=== PATIENT | male | born 1960 | race American Indian/Alaskan Native ===

== ENCOUNTER 2016-08-03 04:22 | Emergency (ER) | payer BC, OTHER ==
[2016-08-03 05:23] LABS: Basophils % (Auto) 0.4 % (0.0-1.8); Eosinophils % (Auto) 1.3 % (0.0-4.3); Hematocrit 43.2 % (35.5-45.6); Hemoglobin 14.3 gm/dl (11.8-15.2); Mean Corpuscular HGB Conc 33 % (32-34); Mean Corpuscular Hemoglobin 29 pg (28-32); Mean Corpuscular Volume 87 fl (84-94); Platelet Count 242 K/mm3 (140-440); Red Blood Count 4.96 M/mm3 (3.65-5.03); White Blood Count 8.3 K/mm3 (4.5-11.0)
[2016-08-03 05:36] LABS: Anion Gap 18 mmol/L; BUN/Creatinine Ratio 16.66; Blood Urea Nitrogen 15 mg/dL (9-20); Calcium 9.5 mg/dL (8.4-10.2); Carbon Dioxide 27 mmol/L (22-30); Chloride 98.6 mmol/L (98-107); Sodium 141 mmol/L (137-145)
[2016-08-03 05:41] LABS: Glucose 33 mg/dL (75-100)
[2016-08-03] MEDS ORDERED: D50W (25GM) IV ONE (05:50)
[2016-08-03] MEDS ORDERED: K-DUR PO ONE (06:21)
--- NOTE | 2016-08-03 06:21 | Emergency Department Report ---
ED General Adult HPI - General Chief complaint: Hypoglycemia Stated complaint: LOW BLOOD SUGAR Time Seen by Provider: 08/03/16 06:17 Source: patient, EMS Mode of arrival: Stretcher Limitations: No Limitations - History of Present Illness Initial comments: EMS was summoned due to patient being lethargic. He was found to have hypoglycemia and given D50. He states that he gave himself 30 of insulin rather than is usual 20 last night unintentionally. He was transported here where he was given an oral feed. At the time of my initial evaluation the patient is asymptomatic. He states he feels back to normal. -: Gradual, hour(s) Severity scale (0 -10): 0 Treatments Prior to Arrival: other (d50) - Related Data Home Medications Medication Instructions Recorded Confirmed Last Taken Insulin Glargine [Lantus] 28 unit SUB-Q Q 09/20/14 08/03/16 08/02/16 amLODIPine/VALSARTAN 10 mg PO DAILY 08/03/16 08/03/16 08/02/16 [Amlodipine-Valsartan 10-160 mg] Allergies Allergy/AdvReac Type Severity Reaction Status Date / Time No Known Allergies Allergy Verified 08/03/16 04:29 ED Review of Systems ROS: Stated complaint: LOW BLOOD SUGAR Other details as noted in HPI Constitutional: denies: chills, fever Eyes: denies: eye pain, eye discharge, vision change ENT: denies: ear pain, throat pain Respiratory: denies: cough, shortness of breath, wheezing Cardiovascular: denies: chest pain, palpitations Endocrine: see HPI Gastrointestinal: denies: abdominal pain, nausea, diarrhea Genitourinary: denies: urgency, dysuria Musculoskeletal: denies: back pain, joint swelling, arthralgia Skin: denies: rash, lesions Neurological: denies: headache, weakness, paresthesias Psychiatric: denies: anxiety, depression Hematological/Lymphatic: denies: easy bleeding, easy bruising ED Past Medical Hx - Past Medical History Previous Medical History?: Yes Hx Hypertension: Yes Hx Diabetes: Yes Additional medical history: prostate cancer 2008 - Surgical History Past Surgical History?: No - Social History Smoking Status: Never Smoker Substance Use Type: None - Medications Home Medications: Home Medications Medication Instructions Recorded Confirmed Last Taken Type Insulin Glargine [Lantus] 28 unit SUB-Q QHS 09/20/14 08/03/16 08/02/16 History amLODIPine/VALSARTAN 10 mg PO DAILY 08/03/16 08/03/16 08/02/16 History [Amlodipine-Valsartan 10-160 mg] ED Physical Exam - General Limitations: No Limitations General appearance: alert, in no apparent distress - Head Head exam: Present: atraumatic, normocephalic - Eye Eye exam: Present: normal appearance. Absent: scleral icterus - ENT ENT exam: Present: mucous membranes moist - Neck Neck exam: Present: normal inspection - Respiratory Respiratory exam: Present: normal lung sounds bilaterally. Absent: respiratory distress - Cardiovascular Cardiovascular Exam: Present: regular rate, normal rhythm. Absent: systolic murmur, diastolic murmur, rubs, gallop - GI/Abdominal GI/Abdominal exam: Present: soft, normal bowel sounds. Absent: distended, tenderness, guarding, rebound - Rectal Rectal exam: Present: deferred - Extremities Exam Extremities exam: Present: normal inspection - Back Exam Back exam: Present: normal inspection - Neurological Exam Neurological exam: Present: alert, oriented X3, CN II-XII intact. Absent: motor sensory deficit - Psychiatric Psychiatric exam: Present: normal affect, normal mood - Skin Skin exam: Present: warm, dry, intact, normal color. Absent: rash ED Course Vital Signs 08/03/16 08/03/16 08/03/16 04:42 04:50 04:57 Temperature 97.7 F Pulse Rate 81 83 Respiratory 19 18 Rate Blood Pressure 142/80 Blood Pressure 142/80 [Left] O2 Sat by Pulse 97 98 97 Oximetry 08/03/16 08/03/16 08/03/16 05:00 05:10 05:20 Temperature Pulse Rate 82 80 75 Respiratory 16 16 14 Rate Blood Pressure 136/73 136/73 136/73 Blood Pressure [Left] O2 Sat by Pulse 95 96 96 Oximetry 08/03/16 08/03/16 08/03/16 05:30 05:40 05:50 Temperature Pulse Rate 76 Respiratory 23 16 13 Rate Blood Pressure 136/73 136/73 136/73 Blood Pressure [Left] O2 Sat by Pulse 97 97 97 Oximetry 08/03/16 08/03/16 08/03/16 06:00 06:10 06:20 Temperature Pulse Rate Respiratory 19 16 17 Rate Blood Pressure 140/80 140/80 140/80 Blood Pressure [Left] O2 Sat by Pulse 98 99 98 Oximetry 08/03/16 08/03/16 08/03/16 06:30 06:39 06:40 Temperature Pulse Rate 82 Respiratory 17 18 16 Rate Blood Pressure 140/80 140/80 Blood Pressure 144/80 [Left] O2 Sat by Pulse 98 98 99 Oximetry 08/03/16 08/03/16 08/03/16 06:50 07:00 07:10 Temperature Pulse Rate Respiratory 14 17 14 Rate Blood Pressure 140/80 140/80 147/83 Blood Pressure [Left] O2 Sat by Pulse 99 97 99 Oximetry 08/03/16 07:20 Temperature 97.7 F Pulse Rate 71 Respiratory 16 Rate Blood Pressure Blood Pressure 147/81 [Left] O2 Sat by Pulse 100 Oximetry - Reevaluation(s) Reevaluation #1: The patient was observed. He remained asymptomatic. He was road tested by the nurse and ready for discharge after my reevaluation. 08/03/16 09:13 ED Medical Decision Making - Lab Data Result diagrams: 08/03/16 04:57 08/03/16 04:57 Laboratory Results - last 24 hr 08/03/16 08/03/16 08/03/16 04:57 04:57 04:59 WBC 8.3 RBC 4.96 Hgb 14.3 Hct 43.2 MCV 87 MCH 29 MCHC 33 RDW 14.0 Plt Count 242 Lymph % (Auto) 12.1 L [place] % (Auto) 8.7 H Eos % (Auto) 1.3 Baso % (Auto) 0.4 Lymph # 1.0 L [place] # 0.7 Eos # 0.1 Baso # 0.0 Seg Neutrophils % 77.5 H Seg Neutrophils # 6.4 Sodium 141 Potassium 3.0 L Chloride 98.6 Carbon Dioxide 27 Anion Gap 18 BUN 15 Creatinine 0.9 Estimated GFR > 60 BUN/Creatinine Ratio 16.66 Glucose 33 L* POC Glucose 42 L Calcium 9.5 08/03/16 05:42 WBC RBC Hgb Hct MCV MCH MCHC RDW Plt Count Lymph % (Auto) [place] % (Auto) Eos % (Auto) Baso % (Auto) Lymph # [place] # Eos # Baso # Seg Neutrophils % Seg Neutrophils # Sodium Potassium Chloride Carbon Dioxide Anion Gap BUN Creatinine Estimated GFR BUN/Creatinine Ratio Glucose POC Glucose 76 Calcium Critical care attestation.: If time is entered above; I have spent that time in minutes in the direct care of this critically ill patient, excluding procedure time. ED Disposition Clinical Impression: Hypoglycemia due to insulin, Insulin dependent diabetes mellitus Disposition: DISCHARGED TO HOME OR SELFCARE Is pt being admited?: No Does the pt Need Aspirin: No Condition: Stable Instructions: Diabetes Mellitus Type 2 in Adults (ED), Diabetic Hypoglycemia ( ED) Additional Instructions: Check her sugars frequently. Appropriate insulin dosing. Coordinate with your primary care provider. Return any further problem. Make sure you eat amply today. Referrals: PRIMARY CARE, [Primary Care Provider] - 2-3 Days Time of Disposition: 09:15
--- NOTE | 2016-08-03 06:44 | Admit Criteria Form ---
Admission Criteria Documentation: DIABETES, HYPOGLYCEMIA Clinical Indications for Admission to Inpatient Care (Place 'X' for any and all applicable criteria): Admission is indicated for ALL of the following (1)(2)(3)(4)(5): [X ]I. Suspected or documented hypoglycemia (plasma glucose less than 50 mg/ dL (2.78 mmol/L)) with severe clinical manifestations or issues as indicated by ANY ONE of the following: [ ]a) Altered mental status (eg, coma, confusion) [ ]b) Seizure [ ]c) Ataxia [ ]d) Dysphasia [ ]e) Focal neurologic deficit(6) [ ]f) Severe weakness or fatigue [ ]g) Significant clinical signs or symptoms that do not resolve with treatment [ X]h) Hypoglycemia induced by ANY ONE of the following(7)(8)(9): [ ]i) Sulfonylurea(10) [X ]ii) Long-acting insulin (eg, half-life more than 6 hours ) (11) [ X]II. Management at other levels of care (See General Criteria: Observation Care) is not feasible because of ANY ONE of the following: [ X]a) Condition was not adequately corrected with treatment at other levels of care. [ ]b) Treatment at other levels of care is not appropriate because of condition severity (eg, coma). Extended stay beyond goal length of stay may be needed for(3)(12)(19): [ ]a) Long acting sulfonylurea-inducing hypoglycemia (10) [ ]b) Presentation in coma [ ]c) Identified etiology of hypoglycemia requires ongoing care (eg, infection ) [ ]d) Neurologic deficit [ ]e) Active serious comorbidities (eg, renal failure, heart failure) The original [employer] content created by [employer] has been revised. The portions of the content which have been revised are identified through the use of italic text or in bold, and [email or web address] has neither reviewed nor approved the modified material.All other unmodified content is copyright [employer]. Please see references footnoted in the original [employer] edition 2016
[2016-08-03 07:28] LABS: Bilirubin,Urine NEG (Negative); Blood,Urine NEG (Negative); Ketones,Urine NEG (Negative); Leukocyte Esterase,Urine NEG (Negative); Mucus,Urine FEW /HPF; Nitrite,Urine NEG (Negative); Protein,Urine <15 mg/dL mg/dL (Negative); RBC,Urine < 1.0 /HPF (0.0-6.0); Urobilinogen,Urine < 2.0 mg/dL (<2.0); WBC,Urine < 1.0 /HPF (0.0-6.0)
[2016-08-03 09:07] VITALS: BP 145/94
== END 2016-08-03 09:30 | disposition home or self-care (01) ==
LOC: ED 04:22
DX: E11.649 Type 2 diabetes mellitus with hypoglycemia without coma (principal); I10 Essential (primary) hypertension; Z79.4 Long term (current) use of insulin
CPT/HCPCS: 36415; 80048; 81001; 82962; 85025; 96374

== ENCOUNTER 2018-11-15 06:04 | Emergency (ER) | payer BC, OTHER ==
[2018-11-15 06:32] LABS: Bacteria,Urine 1+ /HPF (Negative); Bilirubin,Urine NEG (Negative); Blood,Urine SM (Negative); Color,Urine Colorless (Yellow); Protein,Urine <15 mg/dL mg/dL (Negative); Urobilinogen,Urine < 2.0 mg/dL (<2.0)
--- NOTE | 2018-11-15 07:04 | Emergency Department Report ---
ED Male HPI - General Chief complaint: Urogenital-Male Stated complaint: URINARY RETENTION Time Seen by Provider: 11/15/18 06:50 Source: patient Mode of arrival: Ambulatory Limitations: No Limitations - History of Present Illness Initial comments: Patient is a 57-year-old with complaints of urinary retention. Patient states he had a prostate surgery last week and on Tuesday he had his cath removed. Patient states he was able to urinate but as of today the patient is only able to urinate small amounts. Patient is complaining of abdominal pressure. Patient states abdominal pressure suprapubic and is a 10 out of 10. Patient states the pain is better with rest and better with urinating. Patient states she is going frequently but only urinating small amounts. Patient denies clots in his urine. Patient states she's had some red tinged to his urine. MD Complaint: other (urinary retention) -: Sudden Location: abdomen Radiation: none Severity: moderate Severity scale (0 -10): 10 Quality: aching Consistency: constant Improves with: urination Worsens with: movement recent surgery urinary retention. denies: discharge, swelling, mass, rash, blood in urine, dysuria, fever, nausea/vomiting, incontinence - Related Data Home Medications Medication Instructions Recorded Confirmed Last Taken Insulin Glargine [Lantus] 28 unit SUB-Q QHS 09/20/14 08/03/16 08/02/16 Amlodipine Besylate/Valsartan 10 mg PO DAILY 08/03/16 08/03/16 08/02/16 [Amlodipine-Valsartan 10-160 mg] Allergies Allergy/AdvReac Type Severity Reaction Status Date / Time No Known Allergies Allergy Verified 08/03/16 04:29 ED Review of Systems ROS: Stated complaint: URINARY RETENTION Other details as noted in HPI Constitutional: denies: chills, fever Eyes: denies: eye pain, eye discharge, vision change ENT: denies: ear pain, throat pain Respiratory: denies: cough, shortness of breath, wheezing Cardiovascular: denies: chest pain, palpitations Endocrine: no symptoms reported Gastrointestinal: abdominal pain. denies: nausea, diarrhea Genitourinary: denies: urgency, dysuria Musculoskeletal: denies: back pain, joint swelling, arthralgia Skin: denies: rash, lesions Neurological: denies: headache, weakness, paresthesias Psychiatric: denies: anxiety, depression Hematological/Lymphatic: denies: easy bleeding, easy bruising ED Past Medical Hx - Past Medical History Previous Medical History?: Yes Hx Hypertension: Yes Hx Diabetes: Yes Hx of Cancer: Yes (prostate) Additional medical history: prostate cancer 2008 - Surgical History Past Surgical History?: Yes Additional Surgical History: prostrate - Family History Family history: no significant - Social History Smoking Status: Never Smoker Substance Use Type: None - Medications Home Medications: Home Medications Medication Instructions Recorded Confirmed Last Taken Type Insulin Glargine [Lantus] 28 unit SUB-Q QHS 09/20/14 08/03/16 08/02/16 History Amlodipine Besylate/Valsartan 10 mg PO DAILY 08/03/16 08/03/16 08/02/16 History [Amlodipine-Valsartan 10-160 mg] ED Physical Exam - General Limitations: No Limitations General appearance: alert, in no apparent distress - Head Head exam: Present: atraumatic, normocephalic - Eye Eye exam: Present: normal appearance - ENT ENT exam: Present: mucous membranes moist - Neck Neck exam: Present: normal inspection - Respiratory Respiratory exam: Present: normal lung sounds bilaterally. Absent: respiratory distress - Cardiovascular Cardiovascular Exam: Present: regular rate, normal rhythm. Absent: systolic murmur, diastolic murmur, rubs, gallop - GI/Abdominal GI/Abdominal exam: Present: soft, tenderness (suprapubic tenderness), normal bowel sounds - Rectal Rectal exam: Present: deferred - Extremities Exam Extremities exam: Present: normal inspection - Back Exam Back exam: Present: normal inspection - Neurological Exam Neurological exam: Present: alert, oriented X3 - Psychiatric Psychiatric exam: Present: normal affect, normal mood - Skin Skin exam: Present: warm, dry, intact, normal color. Absent: rash ED Course Vital Signs 11/15/18 11/15/18 06:07 06:55 Temperature 97.8 F 97.9 F Pulse Rate 72 64 Respiratory 18 16 Rate Blood Pressure 210/113 Blood Pressure 148/79 [Left] O2 Sat by Pulse 99 100 Oximetry - Reevaluation(s) Reevaluation #1: Initial evaluation done. Patient's Todd placed. See procedure note. Patient's current blood pressure is 148/70. 11/15/18 06:50 Reevaluation #2: He states his abdominal pain has resolved. Patient states she's not having any pain. Patient states he is feeling much better 11/15/18 07:04 Reevaluation #3: I discussed all results with patient. Patient is stable for discharge. Patient will be discharged home. Patient agrees with plan of care. Patient given discharge instructions. Patient voiced understanding discharge instructions. 11/15/18 07:09 - Catheter Insertion (Urinary) Indications: to alleviate urinary retention Prophylactic Antibiotics Given: No Bladder Scan/US before Catherization: No Preparation: Providone-Iodine Type of Catheter Inserted: Todd Catheter [place] Size: 16 Catheter Balloon Size (mls): 10 Topical Anesthesia Used: No Results: successfully catherized-immediate flow Patient Tolerated Procedure: well, no complications Complications: none ED Medical Decision Making - Medical Decision Making Patient is a 57-year-old male that presents emergency room with complaints of not being able to urinate. Patient also complained of abdominal pressure. Patient found to have urinary retention. Patient had a Todd placed and had an immediate relief. Blood pressure significantly high in triage however on recheck after Todd was placed the patient's blood pressure was much better. Patient at 1300 mils removed. Patient's urine essentially unremarkable except for glucose in his urine and patient advised to follow-up with diabetic doctor for management of his diabetes. Patient advised to follow up with urology and his primary care. Patient given discharge instructions. Patient stable for discharge. - Differential Diagnosis RIGO. Urinary retention. Critical care attestation.: If time is entered above; I have spent that time in minutes in the direct care of this critically ill patient, excluding procedure time. ED Disposition Clinical Impression: Urinary retention Abdominal pain Qualifiers: Abdominal location: lower abdomen, unspecified Qualified Code(s): R10.30 - Lower abdominal pain, unspecified Hypertension Qualifiers: Hypertension type: essential hypertension Qualified Code(s): I10 - Essential (primary) hypertension Disposition: - TO HOME OR SELFCARE Is pt being admited?: No Does the pt Need Aspirin: No Condition: Stable Instructions: Urinary Retention in Men (ED), Heart Healthy Diet (ED), Todd Catheter Placement and Care (ED), Chronic Hypertension (ED), DASH Eating Plan ( ED), Low Sodium Diet (ED), Hypertension (ED), Urinary Leg Bag (GEN) Additional Instructions: Patient to follow up with primary care in 2-3 days. Patient to follow up with urologist within 24 hours. Patient to return to ER if condition worsens. Patient to take meds as directed. Patient increase water. Patient to take Tylenol or ibuprofen when necessary for pain. Patient to leave Todd in until removed by urologist. Referrals: PRIMARY CARE, [Primary Care Provider] - 2-3 Days Time of Disposition: 07:09
[2018-11-15 07:16] VITALS: BP 148/79
== END 2018-11-15 07:35 | disposition home or self-care (01) ==
LOC: ED 06:04
DX: R33.9 Retention of urine, unspecified (principal); R10.30 Lower abdominal pain, unspecified; I10 Essential (primary) hypertension; E11.9 Type 2 diabetes mellitus without complications; Z85.46 Personal history of malignant neoplasm of prostate; Z79.899 Other long term (current) drug therapy
CPT/HCPCS: 51702; 81001

== ENCOUNTER 2018-11-19 22:00 | Emergency (ER) | payer OTHER ==
[2018-11-20 00:19] LABS: Basophils # (Auto) 0.1 K/mm3 (0.0-0.1); Basophils % (Auto) 0.6 % (0.0-1.8); Hematocrit 47.2 % (35.5-45.6); Hemoglobin 15.9 gm/dl (11.8-15.2); Lymphocytes # (Auto) 0.6 K/mm3 (1.2-5.4); Lymphocytes % (Auto) 4.1 % (13.4-35.0); Mean Corpuscular HGB Conc 34 % (32-34); Mean Corpuscular Volume 87 fl (84-94); Monocytes # (Auto) 0.8 K/mm3 (0.0-0.8); Platelet Count 277 K/mm3 (140-440); Red Blood Count 5.44 M/mm3 (3.65-5.03); Red Cell Distribution Width 13.7 % (13.2-15.2)
[2018-11-20 00:29] LABS: INR 1.09 (0.87-1.13)
[2018-11-20 00:41] LABS: Alanine Aminotransferase 16 units/L (7-56); Albumin 3.8 g/dL (3.9-5); BUN/Creatinine Ratio 16; Blood Urea Nitrogen 14 mg/dL (9-20); Calcium 9.3 mg/dL (8.4-10.2); Hemolysis Index 41
[2018-11-20] MEDS ORDERED: NACL 0.9% 1000 ML 1,000 ML IV ONE (00:43)
[2018-11-20] MEDS ORDERED: TORADOL IV PRN (00:43)
[2018-11-20] MEDS ORDERED: ZOFRAN IV STA (00:43)
--- NOTE | 2018-11-20 00:50 | Emergency Department Report ---
ED General Adult HPI - General Chief complaint: Abdominal Pain Stated complaint: EMESIS/FEVER Time Seen by Provider: 11/20/18 00:39 Source: patient, family Mode of arrival: Wheelchair Limitations: No Limitations - History of Present Illness Initial comments: A 57 year old -Citizen Of The [place] male with past medical history of hypertension and diabetes. 1 week in a few days status post prostate surgical procedure, which resulted in urinary retention for which he was seen at this emergency department 2 days ago. That visit resulted in a Todd catheter implantation which she has been utilizing as directed. He presents today complaining of severe suprapubic pain, nausea and vomiting with occasional streaks of blood and there which started on yesterday. Symptoms has continued to progressively worsening since since the onset, associated with general weakness. States that the blood was dark in color. Pain is sharp in nature. Denies any known history of any acid reflux or peptic ulcer disease. Reports no trauma, foreign travel and the only new medication was the ciprofloxacin which was started 2 days ago when the Todd was placed. Radiation: non-radiation Quality: dull Consistency: constant Improves with: none Worsens with: none Associated Symptoms: fever/chills, malaise, nausea/vomiting. denies: confusion, chest pain, diaphoresis, loss of appetite, seizure, shortness of breath, syncope Treatments Prior to Arrival: none - Related Data Home Medications Medication Instructions Recorded Confirmed Last Taken Insulin Glargine [Lantus] 28 unit SUB-Q QHS 09/20/14 08/03/16 08/02/16 Amlodipine Besylate/Valsartan 10 mg PO DAILY 08/03/16 08/03/16 08/02/16 [Amlodipine-Valsartan 10-160 mg] Previous Rx's Medication Instructions Recorded Last Taken Type Ondansetron [Zofran ODT TAB] 8 mg PO Q12HR #30 tab.rapdis 11/20/18 Unknown Rx Phenazopyridine [Pyridium] 200 mg PO TID #9 tab 11/20/18 Unknown Rx levoFLOXacin [Levaquin TAB] 500 mg PO QDAY #7 tablet 11/20/18 Unknown Rx Allergies Allergy/AdvReac Type Severity Reaction Status Date / Time No Known Allergies Allergy Verified 08/03/16 04:29 ED Review of Systems ROS: Stated complaint: EMESIS/FEVER Other details as noted in HPI Comment: All other systems reviewed and negative ED Past Medical Hx - Past Medical History Hx Hypertension: Yes Hx Diabetes: Yes Additional medical history: prostate cancer 2008 - Surgical History Additional Surgical History: prostrate - Social History Smoking Status: Never Smoker Substance Use Type: None - Medications Home Medications: Home Medications Medication Instructions Recorded Confirmed Last Taken Type Insulin Glargine [Lantus] 28 unit SUB-Q QHS 09/20/14 08/03/16 08/02/16 History Amlodipine Besylate/Valsartan 10 mg PO DAILY 08/03/16 08/03/16 08/02/16 History [Amlodipine-Valsartan 10-160 mg] Ondansetron [Zofran ODT TAB] 8 mg PO Q12HR #30 tab.rapdis 11/20/18 Unknown Rx Phenazopyridine [Pyridium] 200 mg PO TID #9 tab 11/20/18 Unknown Rx levoFLOXacin [Levaquin TAB] 500 mg PO QDAY #7 tablet 11/20/18 Unknown Rx ED Physical Exam - General Limitations: No Limitations General appearance: alert, in no apparent distress - Head Head exam: Present: atraumatic, normocephalic - Eye Eye exam: Present: normal appearance - ENT ENT exam: Present: mucous membranes moist - Neck Neck exam: Present: normal inspection - Respiratory Respiratory exam: Present: normal lung sounds bilaterally. Absent: respiratory distress - Cardiovascular Cardiovascular Exam: Present: regular rate, normal rhythm. Absent: systolic murmur, diastolic murmur, rubs, gallop - GI/Abdominal GI/Abdominal exam: Present: soft, tenderness (significant tenderness to the left and right lower quadrant.), normal bowel sounds. Absent: mass, pulsatile mass - Rectal Rectal exam: Present: deferred - Extremities Exam Extremities exam: Present: normal inspection, full ROM - Back Exam Back exam: Present: normal inspection, full ROM. Absent: CVA tenderness (R), CVA tenderness (L) - Neurological Exam Neurological exam: Present: alert, oriented X3, CN II-XII intact, normal gait. Absent: motor sensory deficit - Psychiatric Psychiatric exam: Present: normal affect, normal mood. Absent: manic - Skin Skin exam: Present: warm, dry, intact, normal color. Absent: rash ED Course Vital Signs 11/20/18 11/20/18 01:10 01:40 Respiratory 16 16 Rate - Reevaluation(s) Reevaluation #1: 11/20/18 04:00 Patient reports she has no nausea and no pain at this present time feels much improved. His sugar has responded to the emergency room as well and nausea responded to his Zofran. Case was discussed with Dr. Perez, who is aware of the findings of the CT scan and patient's current condition. He is awake, alert and oriented and ready for discharge ED Medical Decision Making - Lab Data Result diagrams: 11/19/18 23:49 11/19/18 23:49 - Radiology Data Radiology results: report reviewed T ABDOMEN AND PELVIS WITHOUT CONTRAST INDICATION: lower abdominal pain. TECHNIQUE: Axial CT images were obtained through the abdomen and pelvis without IV contrast. All CT scans at this location are performed using CT dose reduction for ALARA by means of automated exposure control. COMPARISON: CT abdomen pelvis 09/20/2014 FINDINGS: LOWER CHEST: No significant abnormality. LIVER: Decreased attenuation within liver characteristic for mild steatosis. GALLBLADDER: No significant abnormality. BILE DUCTS: No significant abnormality. PANCREAS: No significant abnormality. SPLEEN: No significant abnormality. ADRENALS: No significant abnormality. RIGHT KIDNEY and URETER: No significant abnormality. LEFT KIDNEY and URETER: No significant abnormality. STOMACH and SMALL BOWEL: No significant abnormality. COLON: No significant abnormality. APPENDIX: Not visualized. No acute inflammatory process PERITONEUM: No free fluid. No free air. No fluid collection. LYMPH NODES: No significant adenopathy. AORTA and ARTERIES: No significant abnormality. IVC and VEINS: No significant abnormality. URINARY BLADDER: Moderately thickened bladder wall with perivesicular stranding changes characteristic for cystitis. Bladder is collapsed with Todd catheter. REPRODUCTIVE ORGANS: Enlarged prostate measuring 5.1 cm ADDITIONAL FINDINGS: Intramuscular fat-containing lesion right iliopsoas muscle measuring 5.8 x 6.6 x 14.0 cm in AP by transverse by craniocaudal dimensions containing thin internal septations, previously measuring 5.5 x 6.7 x 13.7 cm SKELETAL SYSTEM: Moderately advanced discogenic degenerative disease L4-5. Moderate facet degenerative disease of lumbar spine IMPRESSION: 1. Thick-walled bladder suggestive for cystitis containing Todd catheter. 2. No urinary tract calculi or hydronephrosis. 3. 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 Signer Name: Tono Willett MD Signed: 11/20/2018 1:32 AM Workstation Name: [id number] - Medical Decision Making 57-year-old -Citizen Of [place] male presents emergency department complaining of nausea, vomiting, abdominal pain with suprapubic discomfort and a Todd cath that was placed 2 days ago. Laboratory data did not support any sepsis or systemic inflammatory response syndrome. He did have a thickened gallbladder on CT scan was suggested some cystitis, which may be of an interstitial calls dizziness as well as infectious. Patient is on ciprofloxacin for place him on Levaquin as it has an increased potency and coverage. Also will give him some medication for the discomfort and an nausea. He does have a be a urologist with [facility], which she will will follow-up for further evaluation and treatment recommendations does have an appointment scheduled for this Tuesday. On November 21. Critical care attestation.: If time is entered above; I have spent that time in minutes in the direct care of this critically ill patient, excluding procedure time. ED Disposition Clinical Impression: UTI (urinary tract infection), Vomiting Disposition: - TO HOME OR SELFCARE Is pt being admited?: No Does the pt Need Aspirin: No Condition: Good Instructions: Urinary Tract Infection in Men (ED), Todd Catheter Placement and Care (ED), Acute Nausea and Vomiting (ED), Dysuria (ED) Prescriptions: levoFLOXacin [Levaquin TAB] 500 mg PO QDAY #7 tablet Phenazopyridine [Pyridium] 200 mg PO TID #9 tab Ondansetron [Zofran ODT TAB] 8 mg PO Q12HR #30 tab.royer Referrals: MICHI DOUGLAS, [Primary Care Provider] - 3-5 Days KELLIE MENDOZA MD [Staff Physician] - 3-5 Days
[2018-11-20] MEDS ORDERED: HumuLIN R IV ONE (00:56)
--- NOTE | 2018-11-20 01:06 | XRay Report ---
CHEST 2 VIEWS INDICATION / CLINICAL INFORMATION: fever and sob. COMPARISON: None FINDINGS: SUPPORT DEVICES: None. HEART / MEDIASTINUM: No significant abnormality. LUNGS / PLEURA: No significant pulmonary or pleural abnormality. No pneumothorax. ADDITIONAL FINDINGS: No significant additional findings. IMPRESSION: 1. No acute findings. Signer Name: Tono Willett MD Signed: 11/20/2018 1:01 AM Workstation Name: [id number]
--- NOTE | 2018-11-20 01:37 | Cat Scan Report ---
CT ABDOMEN AND PELVIS WITHOUT CONTRAST INDICATION: lower abdominal pain. TECHNIQUE: Axial CT images were obtained through the abdomen and pelvis without IV contrast. All CT scans at [facility] location are performed using CT dose reduction for ALARA by means of automated exposure control. COMPARISON: CT abdomen pelvis 09/20/2014 FINDINGS: LOWER CHEST: No significant abnormality. LIVER: Decreased attenuation within liver characteristic for mild steatosis. GALLBLADDER: No significant abnormality. BILE DUCTS: No significant abnormality. PANCREAS: No significant abnormality. SPLEEN: No significant abnormality. ADRENALS: No significant abnormality. RIGHT KIDNEY and URETER: No significant abnormality. LEFT KIDNEY and URETER: No significant abnormality. STOMACH and SMALL BOWEL: No significant abnormality. COLON: No significant abnormality. APPENDIX: Not visualized. No acute inflammatory process PERITONEUM: No free fluid. No free air. No fluid collection. LYMPH NODES: No significant adenopathy. AORTA and ARTERIES: No significant abnormality. IVC and VEINS: No significant abnormality. URINARY BLADDER: Moderately thickened bladder wall with perivesicular stranding changes characteristi c for cystitis. Bladder is collapsed with Todd catheter. REPRODUCTIVE ORGANS: Enlarged prostate measuring 5.1 cm ADDITIONAL FINDINGS: Intramuscular fat-containing lesion right iliopsoas muscle measuring 5.8 x 6.6 x 14.0 cm in AP by transverse by craniocaudal dimensions containing thin internal septations, previous ly measuring 5.5 x 6.7 x 13.7 cm SKELETAL SYSTEM: Moderately advanced discogenic degenerative disease L4-5. Moderate facet degenerativ e disease of lumbar spine IMPRESSION: 1. Thick-walled bladder suggestive for cystitis containing Todd catheter. 2. No urinary tract calculi or hydronephrosis. 3. 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 Signer Name: Tono Willett MD Signed: 11/20/2018 1:32 AM Workstation Name: [id number]
[2018-11-20 01:58] LABS: Bilirubin,Urine NEG (Negative); Blood,Urine MOD (Negative); Color,Urine Yellow (Yellow); Mucus,Urine FEW /HPF
[2018-11-20] MEDS ORDERED: ROCEPHIN IV STA (02:22)
[2018-11-20 04:39] VITALS: BP 156/87
== END 2018-11-20 04:38 | disposition home or self-care (01) ==
LOC: ED 22:00
DX: N39.0 Urinary tract infection, site not specified (principal); R11.2 Nausea with vomiting, unspecified; I10 Essential (primary) hypertension; E11.9 Type 2 diabetes mellitus without complications; Z79.4 Long term (current) use of insulin; Z79.899 Other long term (current) drug therapy
CPT/HCPCS: 36415; 71046; 74176; 80053; 81001; 82140; 82962; 83690; 85025; 85610; 87040; 96361; 96374; 96375; 99284; J0696; J1885; J2405; J7030; 51702; J1815

== ENCOUNTER 2018-11-21 15:58 | Emergency (ER) | payer OTHER ==
[2018-11-21 16:11] VITALS: BP 118/82
[2018-11-21 17:24] LABS: Basophils # (Auto) 0.1 K/mm3 (0.0-0.1); Basophils % (Auto) 0.4 % (0.0-1.8); Eosinophils % (Auto) 0.2 % (0.0-4.3); Hematocrit 41.6 % (35.5-45.6); Hemoglobin 13.8 gm/dl (11.8-15.2); Lymphocytes # (Auto) 0.8 K/mm3 (1.2-5.4); Lymphocytes % (Auto) 4.8 % (13.4-35.0); Mean Corpuscular HGB Conc 33 % (32-34); Mean Corpuscular Volume 87 fl (84-94); Monocytes # (Auto) 1.2 K/mm3 (0.0-0.8); Monocytes % (Auto) 7.1 % (0.0-7.3); Platelet Count 236 K/mm3 (140-440); Red Blood Count 4.76 M/mm3 (3.65-5.03); Red Cell Distribution Width 13.6 % (13.2-15.2)
[2018-11-21 17:39] LABS: Bilirubin,Urine NEG (Negative); Blood,Urine SM (Negative); Color,Urine Amber (Yellow); Mucus,Urine FEW /HPF
[2018-11-21 17:43] LABS: BUN/Creatinine Ratio 16; Blood Urea Nitrogen 16 mg/dL (9-20); Hemolysis Index 6
[2018-11-21] MEDS ORDERED: MORPHINE IV ONE (19:51)
[2018-11-21] MEDS ORDERED: ZOFRAN IV ONE (19:51)
[2018-11-21] MEDS ORDERED: ROCEPHIN/NS 1 GM/50 ML 1 GM/50 ML BAG IV ONE (19:52)
[2018-11-22] MEDS ORDERED: PEPCID IV ONE (01:34)
[2018-11-22] MEDS ORDERED: ZOFRAN IV ONE (01:34)
[2018-11-22] MEDS ORDERED: MORPHINE IV ONE (01:34)
--- NOTE | 2018-11-22 01:35 | Emergency Department Report ---
ED Abdominal Pain HPI - General Chief Complaint: Abdominal Pain Stated Complaint: GENERAL WEAKNESS Time Seen by Provider: 11/21/18 19:35 Source: patient Mode of arrival: Ambulatory Limitations: No Limitations - History of Present Illness Initial Comments: Patient is a 57-year-old -[place] male with a history of hypertension and prostate cancer in remission who presents to the ED with complaint of acute onset persistent diffuse abdominal pain, nausea and vomiting for the last 5 days. Patient was treated in ED and diagnosed with acute urinary tract infection 24 hours ago and was discharged home on medications but states that he just started taking the antibiotics today but was not able to keep anything down because of nausea and vomiting. Patient states that he was referred to the ED by his primary care physician to rule out any small bowel obstruction since she has not had any bowel movement in 5 days. Patient however had abdominal pelvis CT scan with contrast which did not reveal any small bowel obstruction, but was essentially unremarkable. Patient denies fever, chills, chest pain, shortness of breath, hematuria, dysuria, hematochezia, hematemesis or headache, dizziness and cough. MD Complaint: abdominal pain, other (nausea and vomiting) -: Sudden, days(s) (5) Location: diffuse Radiation: none Migration to: no migration Severity: severe Severity scale (0 -10): 10 Quality: cramping, aching, sharp Consistency: constant Improves With: nothing Worsens With: nothing Associated Symptoms: denies other symptoms, nausea, vomiting - Related Data Home Medications Medication Instructions Recorded Confirmed Last Taken Insulin Glargine [Lantus] 28 unit SUB-Q QHS 09/20/14 08/03/16 08/02/16 Amlodipine Besylate/Valsartan 10 mg PO DAILY 08/03/16 08/03/16 08/02/16 [Amlodipine-Valsartan 10-160 mg] Previous Rx's Medication Instructions Recorded Last Taken Type Ondansetron [Zofran ODT TAB] 8 mg PO Q12HR #30 tab.rapdis 11/20/18 Unknown Rx Phenazopyridine [Pyridium] 200 mg PO TID #9 tab 11/20/18 Unknown Rx levoFLOXacin [Levaquin TAB] 500 mg PO QDAY #7 tablet 11/20/18 Unknown Rx Ketorolac [Toradol] 10 mg PO Q8H PRN #20 tablet 11/22/18 Unknown Rx traMADol [Ultram] 50 mg PO Q6HR PRN #15 tablet 11/22/18 Unknown Rx Allergies Allergy/AdvReac Type Severity Reaction Status Date / Time No Known Allergies Allergy Verified 08/03/16 04:29 ED Review of Systems ROS: Stated complaint: GENERAL WEAKNESS Other details as noted in HPI Constitutional: denies: chills, fever Eyes: denies: eye pain, eye discharge, vision change ENT: denies: ear pain, throat pain Respiratory: denies: cough, shortness of breath, wheezing Cardiovascular: denies: chest pain, palpitations Endocrine: no symptoms reported Gastrointestinal: abdominal pain, nausea, vomiting. denies: diarrhea Genitourinary: denies: urgency, dysuria Musculoskeletal: denies: back pain, joint swelling, arthralgia Skin: denies: rash, lesions Neurological: denies: headache, weakness, paresthesias Psychiatric: denies: anxiety, depression Hematological/Lymphatic: denies: easy bleeding, easy bruising ED Past Medical Hx - Past Medical History Previous Medical History?: Yes Hx Hypertension: Yes Hx Diabetes: Yes Additional medical history: prostate cancer 2009 - Surgical History Past Surgical History?: Yes Additional Surgical History: prostrate - Social History Smoking Status: Never Smoker Substance Use Type: None - Medications Home Medications: Home Medications Medication Instructions Recorded Confirmed Last Taken Type Insulin Glargine [Lantus] 28 unit SUB-Q QHS 09/20/14 08/03/16 08/02/16 History Amlodipine Besylate/Valsartan 10 mg PO DAILY 08/03/16 08/03/16 08/02/16 History [Amlodipine-Valsartan 10-160 mg] Ondansetron [Zofran ODT TAB] 8 mg PO Q12HR #30 tab.rapdis 11/20/18 Unknown Rx Phenazopyridine [Pyridium] 200 mg PO TID #9 tab 11/20/18 Unknown Rx levoFLOXacin [Levaquin TAB] 500 mg PO QDAY #7 tablet 11/20/18 Unknown Rx Ketorolac [Toradol] 10 mg PO Q8H PRN #20 tablet 11/22/18 Unknown Rx traMADol [Ultram] 50 mg PO Q6HR PRN #15 tablet 11/22/18 Unknown Rx ED Physical Exam - General Limitations: No Limitations General appearance: alert, in no apparent distress - Head Head exam: Present: atraumatic, normocephalic, normal inspection - Eye Eye exam: Present: normal appearance, PERRL, EOMI. Absent: scleral icterus, conjunctival injection, nystagmus Pupils: Present: normal accommodation - ENT ENT exam: Present: normal exam, normal orophraynx, mucous membranes moist, TM's normal bilaterally, normal external ear exam - Neck Neck exam: Present: normal inspection, full ROM. Absent: tenderness, meningismus, lymphadenopathy, thyromegaly - Respiratory Respiratory exam: Present: normal lung sounds bilaterally. Absent: respiratory distress, wheezes, rales, rhonchi, chest wall tenderness, accessory muscle use, decreased breath sounds - Cardiovascular Cardiovascular Exam: Present: regular rate, normal rhythm, normal heart sounds. Absent: systolic murmur, diastolic murmur, rubs, gallop - GI/Abdominal GI/Abdominal exam: Present: soft, tenderness (Palpable diffuse moderate lower abdominal tenderness), normal bowel sounds. Absent: hyperactive bowel sounds, hypoactive bowel sounds, organomegaly - Rectal Rectal exam: Present: deferred - Extremities Exam Extremities exam: Present: normal inspection, full ROM, normal capillary refill - Back Exam Back exam: Present: normal inspection, full ROM. Absent: tenderness, CVA tenderness (R), CVA tenderness (L), muscle spasm, paraspinal tenderness - Neurological Exam Neurological exam: Present: alert, oriented X3, CN II-XII intact, normal gait, reflexes normal - Psychiatric Psychiatric exam: Present: normal affect, normal mood - Skin Skin exam: Present: warm, dry, intact, normal color. Absent: rash ED Course Vital Signs 11/21/18 11/21/18 16:09 20:32 Temperature 99.5 F Pulse Rate 88 Respiratory 20 18 Rate Blood Pressure 118/82 O2 Sat by Pulse 99 Oximetry - Reevaluation(s) Reevaluation #1: 11/22/18 01:40 This is a 57-year-old male presented to the ED with abdominal pain, nausea and vomiting for 5 days. Patient was evaluated extensively possible including wheat abdomen pelvis CT scan with contrast and was diagnosed with acute urinary tract infection, and discharged home on antibiotics. Patient return to the ED today stating that he was not eaten anything because this is an nausea and vomiting and abdominal pain. In the ED, patient is alert and oriented 3 and is not in distress. Patient was treated in the ED for pain and nausea and vomiting, and also received 1 L normal saline IV bolus and Rocephin 1 g IV 1. All lab tests results were reviewed and compared with the previous test results, and showed a cute hyponatremia 128 mmol per liter, leukocytosis of 16,300 and significant urinary tract infection with hyperglycemia 3 73 mg/dL. On reevaluation, patient's nausea and vomiting resolved in the ED and pain is well controlled. Patient was discharged home on pain medication which was prescribed for him in the previous visit and was advised to continue taking her previously prescribed antibiotics with antiemetics and follow-up with his primary care physician in 5- 7 days for reevaluation or return to the ED immediately if symptoms get worse. 11/22/18 01:42 ED Medical Decision Making - Lab Data Result diagrams: 11/21/18 17:07 11/21/18 17:07 - Medical Decision Making This is a 57-year-old male presented to the ED with abdominal pain, nausea and vomiting for 5 days. Patient was evaluated extensively possible including wheat abdomen pelvis CT scan with contrast and was diagnosed with acute urinary tract infection, and discharged home on antibiotics. Patient return to the ED today stating that he was not eaten anything because this is an nausea and vomiting and abdominal pain. In the ED, patient is alert and oriented 3 and is not in distress. Patient was treated in the ED for pain and nausea and vomiting, and also received 1 L normal saline IV bolus and Rocephin 1 g IV 1. All lab tests results were reviewed and compared with the previous test results, and showed acute hyponatremia 128 mmol per liter, leukocytosis of 16,300 and significant urinary tract infection with hyperglycemia 3 73 mg/dL. On reevaluation, patient's nausea and vomiting resolved in the ED and pain is well controlled. Patient was discharged home on pain medication which was prescribed for him in the previous visit and was advised to continue taking her previously prescribed antibiotics with antiemetics and follow-up with his primary care physician in 5- 7 days for reevaluation or return to the ED immediately if symptoms get worse. - Differential Diagnosis abdominal pain, dehydration; acute UTI; Vomiting Critical care attestation.: If time is entered above; I have spent that time in minutes in the direct care of this critically ill patient, excluding procedure time. ED Disposition Clinical Impression: Nausea and vomiting in adult, Acute hyponatremia, Dehydration Abdominal pain Qualifiers: Abdominal location: generalized Qualified Code(s): R10.84 - Generalized abdominal pain UTI (urinary tract infection) Qualifiers: Urinary tract infection type: acute cystitis Hematuria presence: without hematuria Qualified Code(s): N30.00 - Acute cystitis without hematuria Disposition: TO HOME OR SELFCARE Is pt being admited?: No Does the pt Need Aspirin: No Condition: Stable Instructions: Acute Abdominal Pain (ED), Urinary Tract Infection in Men (ED), Acute Nausea and Vomiting (ED) Additional Instructions: Take medications with food, drink plenty of fluids and follow up with your primary care physician in 5-7 days for reevaluation. Return to the ED immediately if symptoms get worse. Prescriptions: Ketorolac [Toradol] 10 mg PO Q8H PRN #20 tablet PRN Reason: Pain traMADol [Ultram] 50 mg PO Q6HR PRN #15 tablet PRN Reason: Pain Referrals: PRIMARY CARE, [Primary Care Provider] - 3-5 Days Time of Disposition: 01:36 Print Language: HEBREW
== END 2018-11-22 02:20 | disposition home or self-care (01) ==
LOC: ED 15:58
DX: R11.2 Nausea with vomiting, unspecified (principal); E87.1 Hypo-osmolality and hyponatremia; E86.0 Dehydration; N39.0 Urinary tract infection, site not specified; I10 Essential (primary) hypertension; E11.9 Type 2 diabetes mellitus without complications; Z85.46 Personal history of malignant neoplasm of prostate; Z79.899 Other long term (current) drug therapy; Z79.4 Long term (current) use of insulin
CPT/HCPCS: 36415; 80048; 81001; 82150; 83690; 85025; 87086; 96365; 96375; 96376; 99283; J0696; J2270; J2405

== ENCOUNTER 2020-09-15 09:26 | Emergency (ER) | payer OTHER ==
[2020-09-15 11:10] LABS: Basophils % (Auto) 0.9 % (0.0-1.8); Eosinophils # (Auto) 0.2 K/mm3 (0.0-0.4); Eosinophils % (Auto) 5.8 % (0.0-4.3); Hematocrit 41.3 % (35.5-45.6); Lymphocytes # (Auto) 0.8 K/mm3 (1.2-5.4); Lymphocytes % (Auto) 20.6 % (13.4-35.0); Mean Corpuscular HGB Conc 34 % (32-34); Mean Corpuscular Volume 88 fl (84-94); Monocytes # (Auto) 0.4 K/mm3 (0.0-0.8); Monocytes % (Auto) 8.8 % (0.0-7.3); Platelet Count 236 K/mm3 (140-440); Red Blood Count 4.72 M/mm3 (3.65-5.03); Red Cell Distribution Width 13.6 % (13.2-15.2)
[2020-09-15 11:13] LABS: Bilirubin,Urine NEG (Negative); Blood,Urine SM (Negative); Color,Urine Straw (Yellow); Urobilinogen,Urine < 2.0 mg/dL (<2.0)
[2020-09-15 11:16] LABS: Alanine Aminotransferase 19 units/L (7-56); Albumin 3.4 g/dL (3.9-5); BUN/Creatinine Ratio 14; Blood Urea Nitrogen 15 mg/dL (9-20); Calcium 9.2 mg/dL (8.4-10.2); Hemolysis Index 2
--- NOTE | 2020-09-15 11:24 | Emergency Department Report ---
ED Allergic Reaction HPI - General Chief complaint: Allergic Reaction Stated complaint: ALLERGIC REACTION Time Seen by Provider: 09/15/20 10:16 Source: patient Mode of arrival: Stretcher Limitations: No Limitations - History of Present Illness Initial Comments: This is a 59-year-old male nontoxic, well nourished in appearance, no acute signs of distress presents to the ED with c/o of facial itching after bee sting. Patient states it is itching and some redness. Patient denies any drooling, hoarseness or facial swelling. Patient denies any trauma. She denies any fever, chills, nausea, vomiting, chest pain, shortness of breath, headache, stiff neck, numbness or tingling. Patient denies any allergies. Patient was brought by EMS and was given Benadryl on route. Patient stated feels much better. Patient stated has past medical history of hypertension which he takes medication daily. MD Complaint: allergic reaction -: This morning Exposure: other (Bee) Symptoms: itching. denies: rash, facial swelling, lip swelling, difficulty swallowing, difficulty breathing, orolingual swelling, hoarseness, syncopy, dizziness, nausea, vomiting, abdominal pain Severity: mild Treatment Prior to Arrival: benadryl - Related Data Home Medications Medication Instructions Recorded Confirmed Last Taken Insulin Glargine [Lantus] 28 unit SUB-Q QHS 09/20/14 08/03/16 08/02/16 Amlodipine Besylate/Valsartan 10 mg PO DAILY 08/03/16 08/03/16 08/02/16 [Amlodipine-Valsartan 10-160 mg] Previous Rx's Medication Instructions Recorded Last Taken Type Ondansetron [Zofran ODT TAB] 8 mg PO Q12HR #30 tab.rapdis 11/20/18 Unknown Rx Phenazopyridine [Pyridium] 200 mg PO TID #9 tab 11/20/18 Unknown Rx levoFLOXacin [Levaquin TAB] 500 mg PO QDAY #7 tablet 11/20/18 Unknown Rx Ketorolac [Toradol] 10 mg PO Q8H PRN #20 tablet 11/22/18 Unknown Rx raNITIdine HCL [Zantac] 150 mg PO Q12H #30 tablet 11/22/18 Unknown Rx traMADoL [Ultram] 50 mg PO Q6HR PRN #15 tablet 11/22/18 Unknown Rx Allergies Allergy/AdvReac Type Severity Reaction Status Date / Time No Known Allergies Allergy Verified 08/03/16 04:29 ED Review of Systems ROS: Stated complaint: ALLERGIC REACTION Other details as noted in HPI Comment: All other systems reviewed and negative Constitutional: denies: chills, fever Eyes: denies: eye pain, eye discharge, vision change ENT: denies: ear pain, throat pain Respiratory: denies: cough, shortness of breath, wheezing Cardiovascular: denies: chest pain, palpitations Endocrine: no symptoms reported Gastrointestinal: denies: abdominal pain, nausea, diarrhea Genitourinary: denies: urgency, dysuria Musculoskeletal: denies: back pain, joint swelling, arthralgia Skin: denies: rash, lesions, change in color, change in hair/nails, pruritus Neurological: denies: headache, weakness, paresthesias Psychiatric: denies: anxiety, depression Hematological/Lymphatic: denies: easy bleeding, easy bruising ED Past Medical Hx - Past Medical History Previous Medical History?: Yes Hx Hypertension: Yes Hx Congestive Heart Failure: Yes Hx Diabetes: Yes Additional medical history: prostate cancer 2008 - Surgical History Additional Surgical History: prostrate - Social History Smoking Status: Unknown if ever smoked Substance Use Type: None - Medications Home Medications: Home Medications Medication Instructions Recorded Confirmed Last Taken Type Insulin Glargine [Lantus] 28 unit SUB-Q QHS 09/20/14 08/03/16 08/02/16 History Amlodipine Besylate/Valsartan 10 mg PO DAILY 08/03/16 08/03/16 08/02/16 History [Amlodipine-Valsartan 10-160 mg] Ondansetron [Zofran ODT TAB] 8 mg PO Q12HR #30 tab.rapdis 11/20/18 Unknown Rx Phenazopyridine [Pyridium] 200 mg PO TID #9 tab 11/20/18 Unknown Rx levoFLOXacin [Levaquin TAB] 500 mg PO QDAY #7 tablet 11/20/18 Unknown Rx Ketorolac [Toradol] 10 mg PO Q8H PRN #20 tablet 11/22/18 Unknown Rx raNITIdine HCL [Zantac] 150 mg PO Q12H #30 tablet 11/22/18 Unknown Rx traMADoL [Ultram] 50 mg PO Q6HR PRN #15 tablet 11/22/18 Unknown Rx ED Physical Exam - General Limitations: No Limitations General appearance: alert, in no apparent distress - Head Head exam: Present: atraumatic, normocephalic - Eye Eye exam: Present: normal appearance - ENT ENT exam: Present: normal exam, normal orophraynx - Expanded ENT Exam Expanded Mouth exam: Present: normal external inspection. Absent: drooling, trismus Teeth exam: Present: normal inspection Throat exam: Positive: normal inspection, other (Uvula midline. No tonsillar swelling. No angioedema. No facial swelling.). Negative: tonsillar erythema, tonsillomegaly, tonsillar exudate, R peritonsillar mass, L peritonsillar mass - Neck Neck exam: Present: normal inspection, full ROM. Absent: lymphadenopathy - Respiratory Respiratory exam: Present: normal lung sounds bilaterally. Absent: respiratory distress, wheezes, rales, rhonchi, stridor, chest wall tenderness, accessory muscle use, decreased breath sounds, prolonged expiratory - Cardiovascular Cardiovascular Exam: Present: regular rate, normal rhythm, normal heart sounds. Absent: bradycardia, tachycardia, irregular rhythm, systolic murmur, diastolic murmur, rubs, gallop - GI/Abdominal GI/Abdominal exam: Present: soft. Absent: distended, tenderness - Extremities Exam Extremities exam: Present: normal inspection, full ROM - Back Exam Back exam: Present: normal inspection, full ROM - Neurological Exam Neurological exam: Present: alert, oriented X3, normal gait - Psychiatric Psychiatric exam: Present: normal affect, normal mood - Skin Skin exam: Present: warm, dry, intact, normal color. Absent: rash, cyanosis, diaphoretic, erythema, urticaria, vesicles, petechiae, pallor, abrasion, ecchymosis ED Course Vital Signs 09/15/20 09:33 Temperature 98 F Pulse Rate 68 Respiratory 16 Rate Blood Pressure 230/106 O2 Sat by Pulse 98 Oximetry - Reevaluation(s) Reevaluation #1: 09/15/20 11:30 Patient is speaking in full sentences with no signs of distress noted. ED Medical Decision Making - Lab Data Result diagrams: 09/15/20 10:26 09/15/20 10:26 Lab Results 09/15/20 09/15/20 09/15/20 Range/Units 10:26 10:26 10:51 WBC 4.1 L (4.5-11.0) K/mm3 RBC 4.72 (3.65-5.03) M/mm3 Hgb 14.0 (11.8-15.2) gm/dl Hct 41.3 (35.5-45.6) % MCV 88 (84-94) fl MCH 30 (28-32) pg MCHC 34 (32-34) % RDW 13.6 (13.2-15.2) % Plt Count 236 (140-440) K/mm3 Lymph % (Auto) 20.6 (13.4-35.0) % Park % (Auto) 8.8 H (0.0-7.3) % Eos % (Auto) 5.8 H (0.0-4.3) % Baso % (Auto) 0.9 (0.0-1.8) % Lymph # (Auto) 0.8 L (1.2-5.4) K/mm3 Park # (Auto) 0.4 (0.0-0.8) K/mm3 Eos # (Auto) 0.2 (0.0-0.4) K/mm3 Baso # (Auto) 0.0 (0.0-0.1) K/mm3 Seg Neutrophils % 63.9 (40.0-70.0) % Seg Neutrophils # 2.6 (1.8-7.7) K/mm3 Sodium 132 L (137-145) mmol/L Potassium 3.8 (3.6-5.0) mmol/L Chloride 96.0 L (98-107) mmol/L Carbon Dioxide 29 (22-30) mmol/L Anion Gap 11 mmol/L BUN 15 (9-20) mg/dL Creatinine 1.1 (0.8-1.3) mg/dL Estimated GFR > 60 ml/min BUN/Creatinine Ratio 14 % Glucose 381 H (75-100) mg/dL Calcium 9.2 (8.4-10.2) mg/dL Total Bilirubin 0.70 (0.1-1.2) mg/dL AST 17 (5-40) units/L ALT 19 (7-56) units/L Alkaline Phosphatase 95 (35-129) units/L Total Protein 6.3 (6.3-8.2) g/dL Albumin 3.4 L (3.9-5) g/dL Albumin/Globulin Ratio 1.2 % Urine Color Straw (Yellow) Urine Turbidity Clear (Clear) Urine pH 6.0 (5.0-7.0) Ur Specific [place] 1.013 (1.003-1.030) Urine Protein 30 mg/dl (Negative) mg/dL Urine Glucose (UA) >=500 (Negative) mg/dL Urine Ketones Neg (Negative) mg/dL Urine Blood Sm (Negative) Urine Nitrite Neg (Negative) Urine Bilirubin Neg (Negative) Urine Urobilinogen < 2.0 (<2.0) mg/dL Ur Leukocyte Esterase Neg (Negative) Urine WBC (Auto) 3.0 (0.0-6.0) /HPF Urine RBC (Auto) 7.0 (0.0-6.0) /HPF U Epithel Cells (Auto) < 1.0 (0-13.0) /HPF - EKG Data 09/15/20 11:35 Normal sinus rhythm at [address] or T wave abnormalities. Reviewed and signed by MD. - Medical Decision Making This is a 59-year-old male that presents with allergic reaction after a bee sting. Patient is stable was examined by me. There is no facial swelling. No angioedema. There is no cellulitis. No hoarseness. Patient was monitored for a while prior to discharge with no new symptoms or angioedema on exam. Patient received Benadryl prior to arrival. Patient was instructed not to operate any machinery after discharge due to possible drowsiness of Benadryl. Patient sta leslie that a family member will drive patient home after discharge. Patient was also instructed for lifestyle modification due to hypertension and take blood pressure measurements daily and presented to primary care doctor if medications need to be changed. Patient was referred to Follow-up with a primary care doctor in 3-5 days or if symptoms worsen and continue return to emergency room as soon as possible. At time of discharge, the patient does not seem toxic or ill in appearance. No acute signs of distress noted. Patient agrees to discharge treatment plan of care. No further questions noted by the patient. According to ACEP: (1) in ED patients with asymptomatic markedly elevated blood pressure, routine screening for acute target organ injury (eg, serum creatinine, urinalysis, ECG) is not required. (1) In patients with asymptomatic markedly elevated blood pressure, routine ED medical intervention is not required. Critical care attestation.: If time is entered above; I have spent that time in minutes in the direct care of this critically ill patient, excluding procedure time. ED Disposition Clinical Impression: Allergic reaction to bee sting Disposition: - TO HOME OR SELFCARE Is pt being admited?: No Does the pt Need Aspirin: No Condition: Stable Instructions: Bee, Wasp, or Hornet Sting, Adult Additional Instructions: Follow-up with a primary care doctor in 3-5 days or if symptoms worsen and continue return to emergency room as soon as possible. Referrals: HAY[facility] SHER [Other] - 3-5 Days PRIMARY CARE, [Referring] - 3-5 Days QUINN ORTIZ MD [Staff Physician] - 3-5 Days Forms: Work/School Release Form(ED) Time of Disposition: 11:36
[2020-09-15 11:45] VITALS: BP 172/72
--- NOTE | 2020-09-16 11:14 | Electrocardiograph Report ---
[facility] Test Date: 2020-09-15 Test Time: 10:43:08 Pat Name: MANDIE MIDDLETON Department: Room: Gender: M Senior Engineering Specialist: : [id number] Requested By: MEDARDO ANAND Order Number: [id number] Reading MD: Boom Choi Measurements Intervals [place] Rate: 60 P: 51 MN: 181 QRS: -18 QRSD: 93 T: 55 QT: 460 QTc: 458 Interpretive Statements Sinus rhythm nonspecfic st-t No previous ECG available for comparison Electronically Signed On 09-16-2020 11:13:45 EDT by Boom Choi
== END 2020-09-15 11:46 | disposition home or self-care (01) ==
LOC: ED 09:26
DX: T63.441A Toxic effect of venom of bees, accidental (unintentional), initial encounter (principal); I11.0 Hypertensive heart disease with heart failure; I50.9 Heart failure, unspecified; E11.9 Type 2 diabetes mellitus without complications; Z79.899 Other long term (current) drug therapy; Y92.89 Other specified places as the place of occurrence of the external cause
CPT/HCPCS: 36415; 80053; 81001; 85025; 93005; 99283